=== PATIENT | male | born 1970 | race Caucasian/White ===

== ENCOUNTER 2024-09-29 09:20 | Emergency (ER) | payer OTHER, SELFPAY ==
--- NOTE | ~2024-09-29 | XR_ITS ---
Clinical Indication: Chest pain PA and lateral views of the chest: Comparison: None Findings: The lungs are clear, without evidence of focal consolidation or pleural effusion. Cardiome diastinal silhouette is within normal limits. Bones and soft tissues are unremarkable. Impression: Normal chest. Reviewed, dictated and finalized at location . [employer] Impression: Normal chest.
--- NOTE | 2024-09-29 09:24 | ECG_ITS ---
Test Date: 2024-09-29 09:28:34 Measurements Intervals [place] Rate: 79 P: 52 IN: 151 QRS: 4 QRSD: 121 T: 48 QT: 374 QTc: 431 Interpretive Statements SINUS RHYTHM INTRAVENTRICULAR CONDUCTION DELAY DELAYED PRECORDIAL R/S TRANSITION INFERIOR MYOCARDIAL INFARCTION , PROBABLY OLD ABNORMAL ECG No previous ECG available for comparison Electronically Signed On 09-29-2024 18:32:45 PROSTHODONTIST/OWNER by Mike Forman D.O.
[2024-09-29 09:27] VITALS: BP 140/78; PULSE 79; RESP 20; TEMP 36.7; O2SAT 98
[2024-09-29 09:43] LABS: Basophils Percent Auto 0.6 % (0.2-1.2); Eosinophils Absolute Auto 0.1 K/mm3 (0-0.3); Eosinophils Percent Auto 2.4 % (0-4.4); Hematocrit 42.8 % (42.0-52.0); Hemoglobin 15.1 g/dL (14.0-18.0); Immature Granulocyte Absolute 0.03 K/mm3 (0.00-0.031); Immature Granulocyte Percent A 0.6 % (0-0.5); Lymphocytes Absolute Auto 1.57 K/mm3 (0.9-3.2); Lymphocytes Percent Auto 29.2 % (18.3-44.2); Mean Corpuscular HGB Conc 35.3 g/dl (32-36); Mean Corpuscular Hemoglobin 31.3 pg (26-34); Mean Corpuscular Volume 88.6 fl (80-100); Mean Platelet Volume 10.4 fl (7.4-10.4); Monocytes Absolute Auto 0.5 K/mm3 (0.1-0.6); Monocytes Percent Auto 9.5 % (2.6-8.5); Neutrophils Absolute Auto 3.1 K/mm3 (1.3-6.7); Neutrophils Percent Auto 57.7 % (45.5-73.1); Platelet Count Result 226 k/mm3 (150-375); Red Blood Count 4.83 M/mm3 (4.6-6.20); Red Cell Distribution Width 12.1 % (11.5-14.5); White Blood Count 5.4 K/mm3 (4.5-10.0)
[2024-09-29 09:52] LABS: Alanine Aminotransferase 34 U/L (6-50); Albumin Level 4.5 g/dL (3.5-5.1); Alkaline Phosphatase 70 U/L (38-126); Anion Gap 8 mmol/L (4-12); Aspartate Amino Transferase 28 U/L (17-59); Bilirubin,Total 0.5 mg/dL (0.2-1.3); Blood Urea Nitrogen 14 mg/dL (9-20); Calcium 9.1 mg/dL (8.4-10.2); Carbon Dioxide 24 mmol/L (22-30); Chloride 106 mmol/L (98-107); Estimated CRCL calculation 98 ml/min; Estimated Glomerular Filt Rate > 60; Glucose 116 mg/dL (65-110); Lipase 64 U/L (23-300); Sodium 138 mmol/L (137-145)
[2024-09-29 09:53] LABS: INR 0.9; Prothrombin Time 12.5 Seconds (11.1-14.7)
--- NOTE | 2024-09-29 09:53 | ED.GENADULT ---
HPI - General Adult General Chief complaint: Chest Pain Stated complaint: sent from for abnormal EKG Time Seen by Provider: 09/29/24 09:30 History of Present Illness HPI narrative: 54-year-old male present to the emergency department for evaluation for chest burning and symptoms that he associated with a head cold. Patient began feeling the symptoms yesterday. Patient presented to urgent care for evaluation and they were concerned due to his elevated blood pressure. Patient does report increased anxiety. Patient did have a in the family yesterday. Patient states he has had a stress test that was negative. Patient denies any history of coronary artery disease. Patient denies any history of PE or DVT. Related Data Allergies Allergy/AdvReac Type Severity Reaction Status Date / Time No Known Allergies Allergy Verified 09/29/24 09:21 Review of Systems Review of Systems: All systems reviewed & are unremarkable except as noted in HPI and below Exam Narrative: APPEARANCE: Well appearing, no pain, no distress, well-nourished. HEAD: normocephalic, atraumatic. EYES: PERRLA/EOMI, conjunctivae clear. NOSE: Normal no drainage EARS:TMS clear with good light reflex. THROAT: Pharynx clear, no exudate. NECK: Supple. No adenopathy, no masses. RESPIRATORY: Airway patent, respirations nonlabored. Clear to auscultation bilaterally, no rales, rhonchi, wheezing. CARDIOVASCULAR: Regular rate and rhythm without murmurs rubs or gallops. ABDOMINAL: Soft, nontender, nondistended, normal bowel sounds MUSCULOSKELETAL: Moves all extremities. Strength/ROM intact, No edema, No calf tenderness. NEURO: Alert. Cranial nerves II through XII intact. Good gait. Good coordination SKIN: Warm, dry. Normal Color PSYCHIATRIC: Anxious appearing Course Vital Signs Vital signs: Vital Signs Temperature 98.1 F 09/29/24 09:27 Pulse Rate 79 09/29/24 09:27 Respiratory Rate 20 09/29/24 09:27 Blood Pressure 140/78 09/29/24 09:27 Pulse Oximetry 98 09/29/24 09:27 Oxygen Delivery Room Air 09/29/24 09:27 Temperature 98.1 F 09/29/24 09:27 Pulse Rate 72 09/29/24 10:38 Respiratory Rate 16 09/29/24 10:38 Blood Pressure 126/83 09/29/24 10:38 Pulse Oximetry 99 09/29/24 10:38 Oxygen Delivery Room Air 09/29/24 10:08 Medical Decision Making [facility] Narrative Medical decision making narrative: 54-year-old male present to the emergency department for viral illness and chest tightness. Patient is afebrile with no leukocytosis and hemoglobin of 15.1. INR 0.9. CMP shows no acute abnormality, chest x-ray shows no acute cardiopulmonary abnormality. Patient's troponin is not elevated an EKG shows normal sinus rhythm. Low concern for ACS suspect viral etiology. Patient was updated on the results of his workup and was comfortable the plan for discharge and close follow-up. Differential Diagnosis Differential Diagnosis: Anxiety, shortness of breath, pulmonary, pneumonia Vital Signs Vital Signs: Vital Signs Temperature 98.1 F 09/29/24 09:27 Pulse Rate 79 09/29/24 09:27 Respiratory Rate 20 09/29/24 09:27 Blood Pressure 140/78 09/29/24 09:27 Pulse Oximetry 98 09/29/24 09:27 Oxygen Delivery Room Air 09/29/24 09:27 Temperature 98.1 F 09/29/24 09:27 Pulse Rate 72 09/29/24 10:38 Respiratory Rate 16 09/29/24 10:38 Blood Pressure 126/83 09/29/24 10:38 Pulse Oximetry 99 09/29/24 10:38 Oxygen Delivery Room Air 09/29/24 10:08 Lab Data Lab results reviewed: Yes I reviewed the patient's lab results. 09/29/24 09:37 09/29/24 09:37 Labs: Lab Results 09/29/24 Range/Units 09:37 WBC 5.4 (4.5-10.0) K/mm3 RBC 4.83 (4.6-6.20) M/mm3 Hgb 15.1 (14.0-18.0) g/dL Hct 42.8 (42.0-52.0) % MCV 88.6 (80-100) fl MCH 31.3 (26-34) pg MCHC 35.3 (32-36) g/dl RDW 12.1 (11.5-14.5) % Plt Count 226 (150-375) k/mm3 MPV 10.4 (7.4-10.4) fl Immature Gran % (Auto) 0.6 H (0-0.5) % Neut % (Auto) 57.7 (45.5-73.1) % Lymph % (Auto) 29.2 (18.3-44.2) % [place] % (Auto) 9.5 H (2.6-8.5) % Eos % (Auto) 2.4 (0-4.4) % Baso % (Auto) 0.6 (0.2-1.2) % Lymph # (Auto) 1.57 (0.9-3.2) K/mm3 [place] # (Auto) 0.5 (0.1-0.6) K/mm3 Eos # (Auto) 0.1 (0-0.3) K/mm3 Baso # (Auto) 0.0 (0.0-0.1) K/mm3 Abs Immat Gran (auto) 0.03 (0.00-0.031) K/mm3 Absolute Neuts (auto) 3.1 (1.3-6.7) K/mm3 Absolute Nucleated RBC 0.000 (0.0-0.012) K/mm3 Nucleated RBC % 0.0 (0.0-0.2) % PT 12.5 (11.1-14.7) Seconds INR 0.9 APTT 24.8 (22.3-36.8) Seconds Sodium 138 (137-145) mmol/L Potassium 4.0 (3.4-5.0) mmol/L Chloride 106 (98-107) mmol/L Carbon Dioxide 24 (22-30) mmol/L Anion Gap 8 (4-12) mmol/L BUN 14 (9-20) mg/dL Creatinine 1.00 (0.7-1.3) mg/dL Estim Creat Clear Calc 98 ml/min Estimated GFR > 60 (59 - ) Glucose 116 H (65-110) mg/dL Calcium 9.1 (8.4-10.2) mg/dL Total Bilirubin 0.5 (0.2-1.3) mg/dL AST 28 (17-59) U/L ALT 34 (6-50) U/L Alkaline Phosphatase 70 (38-126) U/L Troponin I < 0.012 (0.000-0.034) ng/mL Total Protein 8.0 (6.3-8.2) g/dL Albumin 4.5 (3.5-5.1) g/dL Lipase 64 (23-300) U/L Imaging Data Radiologist's impression: Impressions Chest X-Ray 09/29/24 10:00 Impression: Normal chest. Discharge Plan Discharge Clinical Impression: Atypical chest pain, Acute viral syndrome, Anxiety Patient Disposition: Home, Self-Care Condition: Stable Instructions: Antibiotic Form, Chest Pain (ED), Viral Syndrome (ED), Anxiety (ED) Additional Instructions: Tylenol and ibuprofen for pain control. Have close follow-up with for primary care physician for additional outpatient cardiac testing and for anxiety control. Ativan as needed for anxiety. If you have any worsening symptoms then please call or return to the emergency department. Prescriptions: New lorazepam [Ativan] 0.5 mg tablet 0.5 mg PO BID PRN (Reason: anxiety) Qty: 14 0RF Follow-up/Referrals: Batool,Kristen Henry APRN [Primary Care Provider] -
[2024-09-29 09:54] LABS: Partial Thromboplastin Time 24.8 Seconds (22.3-36.8)
[2024-09-29] MEDS: ASPIRIN 81 MG CHEWABLE TABLET 324 MG PO (10:03)
[2024-09-29 10:04] LABS: Troponin I < 0.012 ng/mL (0.000-0.034)
[2024-09-29 10:08] VITALS: O2SAT 96
[2024-09-29 10:38] VITALS: BP 126/83; PULSE 72; RESP 16; O2SAT 99
== END 2024-09-29 10:58 | disposition home or self-care (01) ==
PROVIDERS: Emergency Provider Emergency Medicine; PCP Registered Nurse
DX: B34.9 Viral infection, unspecified (principal); R07.89 Other chest pain; F41.9 Anxiety disorder, unspecified; I45.9 Conduction disorder, unspecified; R94.31 Abnormal electrocardiogram [ECG] [EKG]
CPT/HCPCS: 36415; 71046; 80053; 83690; 84484; 85025; 85610; 85730; 93005; 99284; A9270